=== PATIENT | female | born 1985 | race Caucasian/White ===

== ENCOUNTER 2017-01-27 05:32 | Day surgery (SDC) | payer OTHER ==
[2017-01-13 11:05] LABS: ABSOLUTE EOSINOPHILS # (AUTO) 0.2 10^3/uL (0.0-0.6); ABSOLUTE LYMPHOCYTES (AUTO) 1.6 10^3/uL (0.5-4.7); ABSOLUTE MONOCYTES (AUTO) 0.5 10^3/uL (0.1-1.4); ABSOLUTE NEUT (AUTO) 2.3 10^3/uL (1.7-8.2); BASOPHILS % (AUTO) 0.7 % (0-2); EOSINOPHILS % (AUTO) 4.5 % (0-6); HEMATOCRIT 44.2 % (36.0-47.0); HEMOGLOBIN 15.5 g/dL (12.0-15.5); HGB HCT DIFFERENCE 2.3; LYMPHOCYTES % (AUTO) 34.2 % (13-45); MEAN CORPUSCULAR HEMOGLOBIN 33.1 pg (27.0-33.4); MEAN CORPUSCULAR VOLUME 95 fl (80-97); MONOCYTES % (AUTO) 11.7 % (3-13); RED BLOOD COUNT 4.67 10^6/uL (3.72-5.28); SEGMENTED NEUTROPHILS % (AUTO) 48.9 % (42-78); WHITE BLOOD COUNT 4.6 10^3/uL (4.0-10.5)
[2017-01-13 11:05] LABS: APPEARANCE,URINE CLEAR; BILIRUBIN,URINE NEGATIVE (NEGATIVE); GLUCOSE, URINE NEGATIVE (NEGATIVE); KETONES,URINE NEGATIVE (NEGATIVE); LEUKOCYTE ESTERASE,URINE NEGATIVE (NEGATIVE); NITRITE,URINE NEGATIVE (NEGATIVE); PROTEIN,URINE NEGATIVE (NEGATIVE); URINE SPECIFIC GRAVITY 1.009; UROBILINOGEN,URINE NEGATIVE mg/dL (<2.0)
--- NOTE | 2017-01-13 11:08 | RADIOLOGY REPORT (SQ) ---
EXAM DESCRIPTION: CHEST PA/LATERAL COMPLETED DATE/TIME: 01/13/2017 10:43 am REASON FOR STUDY: PRE OP COMPARISON: None. EXAM PARAMETERS: NUMBER OF VIEWS: two views TECHNIQUE: Digital Frontal and Lateral radiographic views of the chest acquired. RADIATION DOSE: NA LIMITATIONS: none FINDINGS: LUNGS AND PLEURA: No opacities, masses or pneumothorax. No pleural effusion. MEDIASTINUM AND HILAR STRUCTURES: No masses or contour abnormalities. HEART AND VASCULAR STRUCTURES: Heart normal size. No evidence for failure. BONES: No acute findings. HARDWARE: None in the chest. OTHER: No other significant finding. IMPRESSION: NO SIGNIFICANT RADIOGRAPHIC FINDING IN THE CHEST. TECHNICAL DOCUMENTATION: JOB ID: [id number] [employer]- All Rights Reserved
[2017-01-13 11:31] LABS: BLOOD UREA NITROGEN 22 mg/dL (7-20); CALCIUM 9.8 mg/dL (8.4-10.2); CARBON DIOXIDE 30 mmol/L (22-30); CREATININE RESULT 0.77 mg/dL (0.52-1.25); GLUCOSE 79 mg/dL (75-110); POTASSIUM 4.9 mmol/L (3.6-5.0); SODIUM 140.5 mmol/L (137-145)
[2017-01-13 11:40] LABS: ANION GAP 10 (5-19); CHLORIDE 101 mmol/L (98-107)
--- NOTE | 2017-01-14 | EKG REPORT ---
SEVERITY:- ABNORMAL ECG - SINUS RHYTHM PROBABLE LEFT VENTRICULAR HYPERTROPHY : Confirmed by: Telly Hensley 13-Jan-2017 23:58:23
[~2017-01-27 05:32] MED LIST: CEFAZOLIN 2 GM/D5W RTU 2 GM/50 ML RTUPB IV PRN; LACTATED RINGERS 1000 ML IV PRN; LIDOCAINE 0.5% INJ-PF (5 MG/ML) 50 ML SDV SUBCUT PRN
[2017-01-27] MEDS ORDERED: BUPIVACAINE HCL 0.5 % INJ/PF 30 ML SDV ONE (05:52)
[2017-01-27] MEDS ORDERED: MIDAZOLAM 2 MG/2 ML INJ ONE (06:28)
[2017-01-27] MEDS ORDERED: PROPOFOL INJ 200 MG/20 ML VIAL IV ONE (06:28)
[2017-01-27] MEDS ORDERED: FENTANYL CITRATE INJ/PF 100 MCG/2 ML AMPUL ONE (06:28)
[2017-01-27] MEDS ORDERED: ACETAMINOPHEN 100 ML IV ONE (06:28)
[2017-01-27] MEDS ORDERED: MORPHINE SULFATE 10 MG/ML INJ ONE (06:29)
[2017-01-27] MEDS ORDERED: PROMETHAZINE HCL INJ 25 MG/1 ML VIAL IV PRN ×2 (07:04)
[2017-01-27] MEDS ORDERED: OXYCODONE-ACETAMINOPHEN 5-325 MG TABLET PO PRN ×2 (07:04)
[2017-01-27] MEDS ORDERED: MEPERIDINE HCL/PF INJ 25 MG/1 ML DISP.SYRIN IV PRN (07:04)
[2017-01-27] MEDS ORDERED: DIPHENHYDRAMINE HCL 50 MG/ML VIAL IV PRN (07:04)
[2017-01-27] MEDS ORDERED: MORPHINE SULFATE 10 MG/ML INJ IV PRN (07:04)
[2017-01-27] MEDS ORDERED: FENTANYL CITRATE INJ/PF 100 MCG/2 ML AMPUL IV PRN ×3 (07:04)
[2017-01-27] MEDS ORDERED: LIDOCAINE 1% INJ-PF (10 MG/ML) 30 ML SDV ONE (07:20)
[2017-01-27] MEDS ORDERED: BUPIVACAINE HCL 0.5%-EPI 1:200000 INJ/PF 30 ML VIAL ONE (07:20)
--- NOTE | 2017-01-27 08:16 | Operative Report ---
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 7 mm chondral lesion of medial femoral condyle. Intact ACL. Grade 1-2 chondral malacia the lateral compartment. Lateral meniscal tear. 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 Abrasion chondroplasty/microfracture patellofemoral compartment. Microfracture medial femoral condyle SURGEON: MARY GONZALEZ ANESTHESIA: LMAC PROCEDURE: With the patient supine on the operating table the right lower extremities prepped and draped in sterile fashion. The knee is insufflated with accommodation Marcaine, Xylocaine, and epinephrine. Subsequent medial lateral patella portal portals are created for introduction of arthroscope and debridement mentation. Joint is examined in systematic fashion findings as above. Using electro frequency ablation probe a partial lateral meniscectomy performed from approximately 6:00 to 11:00 on the face with Dial. The kissing osteochondral lesions in the patellofemoral compartment are examined. Loose chondral tissue was removed using a curette and the mechanical shaver. The underlying subchondral bone of both the femur and the patella are perforated using microfracture awls. The pressure in the joint is decreased to ensure that these microfractures led to subchondral bleeding. Similarly the loose chondral tissue the medial femoral condyle was removed using a combination of a curette and a mechanical shaver. Likewise a microfracture is performed in this area. The joint is again examined in systematic fashion no new findings. Instrumentation was removed. The portals reapproximated with interrupted nylon. A sterile compressive dressing was applied. The patient's return to the PACU in satisfactory condition.
[2017-01-27] MEDS ORDERED: OXYCODONE HCL IR 5 MG TABLET PO PRN (08:40)
[2017-01-27] MEDS ORDERED: ONDANSETRON 4 MG TAB.RAPDIS SL PRN (08:40)
[2017-01-27 11:41] VITALS: BP 100/59
[2017-01-27] MEDS ORDERED: ONDANSETRON HCL INJ/PF 4 MG/2 ML SDV ONE (14:10)
[2017-01-27] MEDS ORDERED: LIDOCAINE 2% INJ-PF (20 MG/ML) 10 ML AMPUL ONE (14:10)
[2017-01-27] MEDS ORDERED: KETOROLAC TROMETHAMINE 60 MG/2 ML SDV ONE (14:10)
[2017-01-27] MEDS ORDERED: GLYCOPYRROLATE INJ 0.4 MG/2 ML VIAL ONE (14:10)
[2017-01-27] MEDS ORDERED: DEXAMETHASONE SOD PHOSPHATE INJ 4 MG/1 ML VIAL ONE (14:10)
== END 2017-01-27 09:55 | disposition home or self-care (01) ==
LOC: OROUT 05:32
PROVIDERS: ATTEND Orthopaedic Surgery
PROC: 0SBC4ZZ Excision of Right Knee Joint, Percutaneous Endoscopic Approach (ICD-10-PCS; 2017-01-27)
PROC: 0SQC4ZZ Repair Right Knee Joint, Percutaneous Endoscopic Approach (ICD-10-PCS; principal; 2017-01-27 07:30)
DX: S83.281A Other tear of lateral meniscus, current injury, right knee, initial encounter (principal); X58.XXXA Exposure to other specified factors, initial encounter; M21.861 Other specified acquired deformities of right lower leg; M22.41 Chondromalacia patellae, right knee; Z79.899 Other long term (current) drug therapy
CPT/HCPCS: 93005; 36415; 85025; 81025; 80048; 81001; 71020; 93010; 29879; 29881; J2250; J3490 ×3; J1100; J1885; J3010; J2405; J2704; J0690; J0131; 1400; J2270